=== PATIENT | male | born 2000 | race Caucasian/White ===

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

== ENCOUNTER 2021-08-13 18:07 | Emergency (ER) | payer OTHER, SELFPAY ==
[2021-08-13 18:07] VITALS: BP 160/98; PULSE 99; RESP 18; TEMP 36.9; O2SAT 97; BMI 48.6
--- NOTE | 2021-08-13 20:47 | EX.ED.DYSGE1 ---
HPI History of Present Illness Chief Complaint: Abscess Informant: patient and parent Onset/Context/Timing Onset: Today and Yesterday Location: Right anterior upper arm Current Severity: Mild Maximum Severity: Mild Worsened by: Nothing Relieved by: Nothing Associated Symptoms Associated Symptoms: Redness Narrative Narrative: Patient was concerned for bite. Does not inject. No recent medical procedures or testing. No fever or systemic symptoms. Prior similar symptoms: No Recent Illness/Hospitalization: No PFSH PFSH Medical History no medical history Home Medications No Known/Unobtainable [No Known Home Medications] 10/04/15 [History Last Taken Unknown] cephalexin 500 mg PO Q6 #40 capsule 08/13/21 [Rx Last Taken Unknown] sulfamethoxazole-trimethoprim [Bactrim DS] 1 tab PO BID #20 tab 08/13/21 [Rx Last Taken Unknown] Allergy/AdvReac Type Severity Reaction Status Date / Time No Known Allergies Allergy Verified 08/13/21 18:09 Surgical History no surgical history Social History Smoking Status: Never smoker ROS ROS ED Constitutional Constitutional ED: Denies chills or fever(s) Eyes Eyes: Denies change in vision ENT ENT ED: Denies ear pain Cardiovascular Cardiovascular: Denies chest pain Respiratory/Chest Respiratory/Chest: Denies dyspnea Gastrointestinal Gastrointestinal: Denies abdominal pain Genitourinary Genitourinary ED: Denies dysuria or hematuria Musculoskeletal Musculoskeletal: Denies arthralgias or myalgias Integumentary Reports abscess and rash Neurologic Neurologic: Denies headache(s), paresthesias or weakness Psychiatric Psychiatric: Denies depression Endocrine Endocrinology: Denies polyuria Allergic/Immunologic Allergic/Immunologic ED: Denies urticaria EXAM Physical Exam Const Vital Signs: 08/13/21 18:07 Temperature 98.5 F Temperature Source Temporal Pulse Rate 99 Respiratory Rate 18 Blood Pressure 160/98 H Blood Pressure Mean 118 Pulse Ox 97 Oxygen Delivery Method Room Air Positive well nourished and well developed General Appearance ED: well developed HEENT Negative for trauma Eyes EOMs intact bilaterally Neck supple Cardio regular rate Extremity Negative for normal to inspection Extremity Narrative: See skin below General Extremety ED: Yes edema and tenderness General Extremity: edema Neuro oriented x3 and no sensory deficits noted Sensorium / Orientation: alert Motor Exam: strength 5/5 throughout Psych mental status grossly normal Skin Skin Narrative: Palm sized area of erythema with central induration MDM MDM MDM Narrative Medical decision making narrative: Patient has cellulitis with likely an early abscess forming. This started yesterday and I do not appreciate any fluctuance. Patient will be started on antibiotics and warm compresses. Return for spreading infection or new symptoms. Follow-up with surgery as an outpatient. Impression 1. Right arm cellulitis Discharge Plan Triage Chief Complaint: Abscess ED Provider: Jaison Hedrick Dx/Rx/DC Orders Instructions: ED Cellulitis Prescriptions: New sulfamethoxazole-trimethoprim [Bactrim DS] 800-160 mg tablet 1 tab PO BID Qty: 20 RF: 0 cephalexin 500 mg capsule 500 mg PO Q6 Qty: 40 RF: 0 No Action No Known Home Medications RF: 0 Primary Care Provider: Sanford Montalvo Referrals: Jaison Martinez MD [STAFF PHYSICIAN] - Disposition Disposition: Home, Self Care
[2021-08-13] MEDS: Cephalexin 250 MG Capsule 500 MG PO (20:59)
[2021-08-13] MEDS: Smz/Tmp Ds Tablet 1 TABLET PO (20:59)
== END 2021-08-13 21:45 | disposition home or self-care (01) ==
LOC: ED 20:55
PROVIDERS: Emergency Provider Emergency Medicine; PCP Family Medicine
DX: L03.113 Cellulitis of right upper limb (principal)
CPT/HCPCS: 99283

== ENCOUNTER 2021-08-14 13:13 | Emergency (ER) | payer OTHER, SELFPAY ==
[2021-08-14 13:13] VITALS: BP 159/95; PULSE 95; RESP 18; TEMP 36.7; O2SAT 98; BMI 46.9
--- NOTE | 2021-08-14 17:44 | EX.ED.UPPERE ---
HPI History of Present Illness Chief Complaint: Wound Informant: patient Occured/Mechanism Comment: Spider bite or hymenoptera sting 4 hymenoptera sting Onset/Context/Timing Onset: Days (3) Context: Gradual Onset Timing: Continuous Quality of Pain: Aching Location: Right arm Worsened by: Movement Relieved by: Nothing Narrative Narrative: Patient presents with right lower arm redness that has been getting worse over the past 3 days. Patient thinks he was either bitten by a spider or stung by a bee or yellowjacket. Patient was seen here recently and started on Bactrim and Keflex. Patient states his pain is worse with movement of his right arm. Patient describes his pain as aching. Patient states that since last night he developed an area that became fluctuant and started to come to a head. Patient denies any fevers or chills. Patient denies any discharge or drainage. Patient denies any nausea or vomiting. [facility] Medical History (Updated 08/14/21 @ 18:[address] Altaf Prater DO) Hydrocele Medical History no medical history Home Medications cephalexin 500 mg PO Q6 #40 capsule 08/13/21 [Rx Last Taken Unknown] sulfamethoxazole-trimethoprim [Bactrim DS] 1 tab PO BID #20 tab 08/13/21 [Rx Last Taken Unknown] Allergy/AdvReac Type Severity Reaction Status Date / Time No Known Allergies Allergy Verified 08/14/21 13:13 Surgical History (Updated 08/14/21 @ 18:[address] Altaf Prater DO) S/P repair of hydrocele Social History Smoking Status: Never smoker ROS ROS ED Constitutional Constitutional ED: Denies chills or fever(s) Eyes Eyes: Denies blurry vision or change in vision ENT ENT ED: Denies rhinorrhea or sore throat Cardiovascular Cardiovascular: Denies chest pain or palpitations Respiratory/Chest Respiratory/Chest: Denies cough or dyspnea Gastrointestinal Gastrointestinal: Denies nausea or vomiting Genitourinary Genitourinary ED: Denies dysuria or hematuria Musculoskeletal Musculoskeletal: Denies back pain or neck pain Integumentary Reports rash; Denies abscess Neurologic Neurologic: Denies headache(s) or weakness Allergic/Immunologic Allergic/Immunologic ED: Denies mouth swelling or urticaria EXAM Physical Exam Const Vital Signs: 08/14/21 13:13 Temperature 98.1 F Temperature Source Temporal Pulse Rate 95 Respiratory Rate 18 Blood Pressure 159/95 H Blood Pressure Mean 116 Pulse Ox 98 Oxygen Delivery Method Room Air Positive well nourished, well developed and obese General Appearance ED: well developed Nutritional Appearance: obese HEENT Reports moist mucous membranes Neck full ROM and supple Neuro oriented x3, CN's II-XII intact bilaterally, moves all extremities, no focal motor deficits and no sensory deficits noted Sensorium / Orientation: alert Skin Skin Narrative: There is erythema, warmth, and induration over the right lower arm. There is an area of fluctuance over the anterior aspect of the right lower arm. There is no active discharge or drainage. Range of motion was slightly limited in complete extension of the right elbow secondary to pain. Radial pulses are equal bilaterally. Sensation was intact to light touch in the radial, median, and ulnar areas. Strength is 5/5 in the radial, median, and ulnar areas. MDM MDM MDM Narrative Medical decision making narrative: The area was cleaned with chlorhexidine prep. The area was anesthetized with 1% plain lidocaine locally. A small cruciate incision was made using an 11 blade scalpel. A moderate amount of purulent drainage was expressed. The wound was left open. Bacitracin dressing was applied. Patient tolerated the procedure well. Patient was instructed to continue the Bactrim and Keflex as prescribed until gone. Patient was instructed to use warm compresses. Patient was instructed to follow-up with her primary care physician in 5 to 7 days. Patient understood and was agreeable with the plan. All questions were answered. Procedures Other Procedures Procedure(s): Incision and drainage: The area was cleaned with chlorhexidine prep. The area was anesthetized with 1% plain lidocaine locally. A small cruciate incision was made using an 11 blade scalpel. A moderate amount of purulent drainage was expressed. The wound was left open. Bacitracin dressing was applied. Patient tolerated the procedure well. Discharge Plan Triage Chief Complaint: Wound ED Provider: Altaf Prater Dx/Rx/DC Orders Clinical Impression: Abscess of arm, right Instructions: ED Abscess Incision And ... Prescriptions: No Action sulfamethoxazole-trimethoprim [Bactrim DS] 800-160 mg tablet 1 tab PO BID Qty: 20 RF: 0 cephalexin 500 mg capsule 500 mg PO Q6 Qty: 40 RF: 0 Primary Care Provider: Sanford Montalvo Referrals: Sanford Montalvo MD [Primary Care Provider] - 3-5 Days Disposition Disposition: Home, Self Care Discharge Date/Time: 08/14/21 18:02
[2021-08-14] MEDS: Lidocaine 1% (20 ml mdv) 20 ML Vial INFILT (17:51)
== END 2021-08-14 18:02 | disposition home or self-care (01) ==
PROVIDERS: Emergency Provider Emergency Medicine; PCP Family Medicine
DX: L02.413 Cutaneous abscess of right upper limb (principal)
CPT/HCPCS: 10060; 99282

== ENCOUNTER → 2024-06-29 | Outpatient (CLI) | payer OTHER, SELFPAY ==
[2024-06-29 15:14] LABS: Absolute Lymphocyte Count 2.25 X10^3/uL (0.83-4.51); Basophil# 0.03 X10^3/uL; Basophil% 0.5 % (0-1); Eosinophil# 0.33 X10^3/uL; Eosinophils% 5.2 % (0-5); Hematocrit 43.3 % (40-54); Hemoglobin 14.8 g/dL (13.0-16.5); Lymphocyte # 2.25 X10^3/ul (0.83-4.51); Lymphocyte % 35.5 % (19-41); Mean Corp Hgb Conc 34.2 g/dL (32-36); Mean Corpuscular Hgb 28.9 pg (27.0-32.0); Mean Corpuscular Volume 84.6 fL (80-94); Mean Platelet Vol. 9.1 fl (6.2-12.0); Monocyte# 0.71 X10^3/uL; Monocyte% 11.2 % (0-10); NRBC Flagged by Analyzer 0 % (0-5); Neutrophil % 47.4 % (47-70); Platelet Count 244 K/mm3 (150-450); RBC Distribution Width CV 12.1 % (11.6-14.6); RBC Distribution Width SD 36.5 fl (35.1-43.9); Red Blood Count 5.12 M/mm3 (4.6-6.2); White Blood Count 6.3 K/mm3 (4.4-11.0)
[2024-06-29 15:29] LABS: AST(SGOT) 21 U/L (15-37); Alanine Aminotransfer ALT/SGPT 42 U/L (16-61); Albumin, Serum 3.9 g/dL (3.2-5.0); Alkaline Phosphatase 71 U/L (45-117); Anion Gap 5 (5-15); BUN 17 mg/dL (7-18); BUN/Creat Ratio 21.3 RATIO (10-20); Calcium,Total 8.8 mg/dL (8.5-10.1); Chloride 104 mmol/L (98-107); Cholesterol 143 mg/dL (200); EST Glomerular Filtration Rate 128 mL/min (>60); Est Glom Filt Rate - Afr Amer 155 mL/min (>60); Globulin 3.9 g/dL (2.2-4.2); Glucose 88 mg/dL (74-106); High Density Lipoprotein 43 mg/dL; Potassium 3.9 mmol/L (3.5-5.1); Protein, Total 7.8 g/dL (6.4-8.2); Sodium Level 136 mmol/L (136-145); Triglycerides 82 mg/dL; Very Low Density Lipoprotein 16 mg/dL (5-40)
[2024-07-01 16:09] LABS: Endomysial Antibody IgA Negative (Negative); Immunoglobulin A 86 mg/dL (90-386); t-Transglutaminase IgA <2 U/mL (0-3)
== END | disposition home or self-care (01) ==
LOC: MTLAB 11:16
PROVIDERS: PCP Nurse Practitioner Family; Referring Provider Nurse Practitioner Family; Visit Provider Nurse Practitioner Family
DX: Z00.01 Encounter for general adult medical examination with abnormal findings (principal); R19.7 Diarrhea, unspecified
CPT/HCPCS: 36415; 80053; 80061; 82784; 83516; 85025; 86255

== ENCOUNTER → 2025-03-09 | Outpatient (CLI) | payer OTHER, SELFPAY ==
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
== END | disposition home or self-care (01) ==
LOC: RAD 16:20
PROVIDERS: PCP Nurse Practitioner Family; Referring Provider Chiropractor; Visit Provider Chiropractor
DX: S13.4XXA Sprain of ligaments of cervical spine, initial encounter (principal); S33.5XXA Sprain of ligaments of lumbar spine, initial encounter
CPT/HCPCS: 72050; 72110

== ENCOUNTER → 2025-03-21 | Outpatient (CLI) | payer OTHER, SELFPAY ==
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
== END | disposition home or self-care (01) ==
PROVIDERS: PCP Nurse Practitioner Family; Referring Provider Chiropractor; Visit Provider Chiropractor
DX: S20.213A Contusion of bilateral front wall of thorax, initial encounter (principal)
CPT/HCPCS: 71111

== ENCOUNTER 2025-05-31 16:00 | Outpatient (RCR) | payer OTHER, SELFPAY ==
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
== END 2025-05-31 19:00 | disposition home or self-care (01) ==
LOC: PT 16:00
PROVIDERS: PCP Nurse Practitioner Family; Referring Provider Chiropractor; Visit Provider Chiropractor
DX: S33.5XXD Sprain of ligaments of lumbar spine, subsequent encounter (principal); S13.4XXD Sprain of ligaments of cervical spine, subsequent encounter; S23.3XXD Sprain of ligaments of thoracic spine, subsequent encounter
CPT/HCPCS: 97035; 97110; 97140; 97162; 97164; 97530

== ENCOUNTER → 2025-06-24 | Outpatient (CLI) | payer OTHER, SELFPAY ==
--- NOTE | 2025-06-24 12:38 | MRI_ITS ---
PROCEDURE: SPINE LUMBAR (ROUTINE) 06/24/2025 REASON FOR EXAM: RADICULOPATHY TECHNIQUE: MRI SPINE LUMBAR (ROUTINE) COMPARISON: Lumbar spine series 03/09/2025. FINDINGS: Imaging evaluation is somewhat limited by the presence of thoracolumbar levoscoliosis. Vertebrae: Schmorl's nodes are seen throughout most of the visualized lower thoracic and lumbar spine, including in both sides of the T11-T12, T12-L1, L1-L2, and L4-L5 levels. Disc degeneration of the lumbar spine is most apparent at L1-L2 and L4-L5 levels. Alignment: No evidence of spondylolysis or spondylolisthesis. Conus Medullaris: Unremarkable appearance, terminating at the lower T12 level. L1-2: A mild right lateral disc protrusion is seen. No significant spinal canal stenosis or neural foraminal narrowing is seen. L2-3: No significant spinal canal stenosis or neural foraminal narrowing is seen. L3-4: No significant spinal canal stenosis or neural foraminal narrowing is seen. L4-5: Mild vertebral body osteophytosis is noted. A mild broad-based disc protrusion is seen, asymmetrically greater to the left. No significant degree of spinal canal stenosis is noted. Probable very mild left neural foraminal narrowing is noted. L5-S1: No significant spinal canal stenosis or neural foraminal narrowing is seen. Sacrum: Limited imaging shows no abnormality. MRI/Spine Lumbar (Routine) IMPRESSION: Multilevel lumbar degenerative disc disease, as described. No spinal canal chong nosis is seen. Reading Location: [place] [id number]
--- NOTE | 2025-06-24 13:00 | MRI_ITS ---
PROCEDURE: SPINE CERVICAL (ROUTINE) 06/24/2025 REASON FOR EXAM: RADICULOPATHY TECHNIQUE: MRI SPINE CERVICAL (ROUTINE) Multiplanar and multisequence images were obtained without IV contrast administration. COMPARISON: Cervical spine study of 03/09/2025. FINDINGS: Vertebrae: Cervical vertebral body heights are preserved. Bone marrow signal is unremarkable. Alignment: Normal. No spondylolisthesis. Spinal Cord: Cervical spinal cord is of normal size and signal intensities. Structures at the foramen magnum are unremarkable. C2-3: Unremarkable C3-4: A very mild disc bulge is noted. No spinal canal stenosis or neural foraminal narrowing is seen. C4-5: A very mild disc bulge is noted. No spinal canal stenosis or neural foraminal narrowing is seen. C5-6: Unremarkable C6-7: Unremarkable C7-T1: Unremarkable T1-T2: No significant spinal canal stenosis or neural foraminal narrowing is seen. MRI/Spine Cervical (Routine) IMPRESSION: Very mild cervical spine degenerative changes. No spinal canal stenosis or tommy ral foraminal narrowing is seen. Reading Location: [place] [id number]
== END | disposition home or self-care (01) ==
LOC: OPMRI 12:28
PROVIDERS: PCP Nurse Practitioner Family; Referring Provider Chiropractor; Visit Provider Chiropractor
DX: S13.4XXA Sprain of ligaments of cervical spine, initial encounter (principal); S33.5XXA Sprain of ligaments of lumbar spine, initial encounter; M54.16 Radiculopathy, lumbar region; M54.12 Radiculopathy, cervical region
CPT/HCPCS: 72141; 72148

== ENCOUNTER → 2025-07-26 | Outpatient (CLI) | payer OTHER, SELFPAY ==
--- NOTE | 2025-07-26 15:35 | MRI_ITS ---
PROCEDURE: UPPER EXT JOINT ONLY(ROUTINE) 07/26/2025 REASON FOR EXAM: RT SHOULDER PAIN TECHNIQUE: Procedure Code: [id number] Modality: MR Procedure: UPPER EXT JOINT ONLY(ROUTINE) Multiplanar and multisequence images were obtained without IV contrast administration. COMPARISON: none FINDINGS: The supraspinatus shows interstitial high signal abutting its insertional fibers articular surface. No evidence of compete fibers interruption. The subscapularis, infraspinatus and teres minor tendons and muscles appear intact. The extra and intra-articular segments of the long head of biceps tendon appear intact. Intact glenoid labrum. Intact bicipital labral anchor. Hypertrophied edematous acromioclavicular joint capsule. Intact acromioclavicular joint. The glenohumeral joint space is maintained. Minimal glenohumeral joint effusion. Fluid and edema signal seen along the subcoracoid and subacromial/subdeltoid bursa. The coraco-acromial and coraco-humeral ligaments are normal in appearance. Subcortical pseudocystic changes of the posterolateral aspect of the humeral head. No marrow infiltrative lesions. The cutaneous and subcutaneous tissues appear normal. MRI/Upper Ext Joint Only(Routine) IMPRESSION: Hypertrophied edematous acromioclavicular joint capsule. Supraspinatus tendinosis. Minimal glenohumeral joint effusion with subcoracoid and subacromial/subdeltoid bursitis. Reading Location: [facility]
== END | disposition home or self-care (01) ==
LOC: OPMRI 15:24
PROVIDERS: PCP Nurse Practitioner Family; Referring Provider Nurse Practitioner Family; Visit Provider Nurse Practitioner Family
DX: M25.511 Pain in right shoulder (principal); V89.2XXD Person injured in unspecified motor-vehicle accident, traffic, subsequent encounter
CPT/HCPCS: 73221